=== PATIENT | male | born 1980 | race Caucasian/White ===

== ENCOUNTER 2020-04-25 08:41 | Emergency (ER) | payer OTHER, SELFPAY ==
--- NOTE | 2020-04-25 08:47 | ED_ITS ---
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 Patient comes in due to ecchymosis to this toenail. Patient appears well. Patient appears in mild pain. MD complaint: foot injury Review of Systems General: Reports: 10 or more systems reviewed and unremarkable except in HPI and below Musc: Reports: extremity pain (left foot injury) PFSH ED PFSH: Social History Smoking and tobacco status: never smoked Physical Exam Const: COMMON NORMALS: no acute distress and patient oriented x3 GENERAL APPEARANCE: cooperative HENMT: COMMON NORMALS: normocephalic, TM's normal bilaterally and Normal external nose present HEAD & SCALP: normal to inspection and normocephalic NOSE: Normal external nose present TYMPANIC MEMBRANE: TM's normal bilaterally MOUTH: Normal oral and palatal mucosa present THROAT: posterior oropharynx normal Eye: GENERAL EYE: appearance normal, both eyes and all related structures Neck/C-Spine: COMMON NORMALS: full ROM Lymph: LYMPHATIC: no lymphadenopathy noted Chest: COMMONS NORMALS: normal inspection of the chest Resp: COMMON NORMALS: normal respiratory effort EFFORT & INSPECTION: Yes able to speak in complete sentences Cardio: COMMON NORMALS: regular rate and regular rhythm RATE: regular rate RHYTHM: regular rhythm GI: COMMON NORMALS: non-tender : COMMON NORMALS: Yes no CVA tenderness BLADDER/KIDNEY EXAM: Yes no CVA tenderness Back/Pelvis: COMMON NORMALS: no CVA tenderness and thoracic and lumbar spine normal to inspection Extremity: NARRATIVE EXTREMITY EXAM: Ecchymosis to the subungual area of the left great toe. Minimal swelling is noted to the foot, or joint of toe. Neuro: COMMON NORMALS: patient oriented x3 and moves all extremities Psych: COMMON NORMALS: mental status grossly normal and cooperative Skin: COMMON NORMALS: no rashes or lesions noted GENERAL SKIN EXAM: no rashes or lesions noted Course Vital Signs: Vital signs: Vital Signs Temperature 98 F 04/25/20 08:48 Pulse Rate 59 L 06/05/20 08:48 Respiratory Rate 16 04/25/20 08:48 Blood Pressure 142/80 04/25/20 08:48 Pulse Oximetry 98 04/25/20 08:48 MDM - Extremity Injury (Lower) MDM Narrative: Medical decision making narrative: Patient came in for evaluat ion due to injury to the left great toe. On exam patient has some ecchymosis under the nail plate of the left great toe. Patient normal range of motion, minimal swelling, mild tenderness. Vital signs are normal. Patient appears well. Differential diagnosis includes fracture, contusion, sprain. X-ray was negative for fracture. Reviewed exam with patient with recommendations for treatment with rest and activity as tolerated. Patient reports understanding agreed to plan. Discharge Plan Discharge Patient Disposition: Home, Self-Care Clinical Impression: Subungual contusion of toe of left foot Qualifiers: Encounter type: initial encounter Qualified Code(s): S90.222A - Contusion of left lesser toe(s) with damage to nail, initial encounter Condition: Stable Discharge Orders: Discharge Order (Routine); Ordered 04/25/20 Ordered By: Oneil Bajwa Referrals: [facility] [Other] Discharge Diet: Usual diet Discharge Activity: Increase activity as tolerated Patient Instructions: Subungual Hematoma (ED) Activity Restrictions/Additional Instructions: Activity as tolerated. Use a supportive shoe. Avoid the use of flip-flops or sandals while the toe is healing. Elevate for discomfort. Use acetaminophen and ibuprofen for pain. Use ice for further comfort relief. Monitor for signs of infection like redness or heat or fever. Drink plenty of water water with medications. Return to the emergency room for fever or new concerns. Follow-up with primary care in 1 week. Coding Level of Care Code ED Patient Safety Sitter for Aj Tabares Exam Comprehensive
[2020-04-25 08:48] VITALS: BP 142/80; PULSE 59; RESP 16; TEMP 36.6; O2SAT 98; BMI 27.1
--- NOTE | 2020-04-25 08:50 | XR_ITS ---
WS: [id number] XR foot LT min 3V* [id number] REASON FOR EXAM: injury FINDINGS: The phalanges, metatarsals, and tarsals all are normal. No fractures the calcaneus shows no fractures there is a calcaneal spur present. XR/XR foot LT min 3V* [id number] IMPRESSION: Calcaneal spur No fractures of the foot.
[2020-04-25 09:21] VITALS: BP 140/82; PULSE 67; RESP 16; O2SAT 98
== END 2020-04-25 09:21 | disposition home or self-care (01) ==
PROVIDERS: Emergency Provider Nurse Practitioner Family
DX: S90.222A Contusion of left lesser toe(s) with damage to nail, initial encounter (principal); W20.8XXA Other cause of strike by thrown, projected or falling object, initial encounter
CPT/HCPCS: 12345; 73630; 99281; 99282